=== PATIENT | male | born 1935 | race Caucasian/White ===

== ENCOUNTER 2017-01-26 05:20 | Inpatient (IN) | payer MEDICARE, OTHER ==
[~2017-01-26] VITALS: Ht 175.3 cm; Wt 104.3 kg
--- NOTE | 2017-01-26 06:07 | PHYS DOC ---
Past Medical History Past Medical History: Arthritis, COPD, Hypertension, Other Additional Past Medical Histor: prediabetes Past Surgical History: Cholecystectomy, Tonsillectomy, Other Additional Past Surgical Histo: nose, prostate Alcohol Use: Occasionally Drug Use: None Adult General Chief Complaint Chief Complaint: Neck Pain HPI HPI Patient is a 81 year old male who presents with right sided neck pain & chest pain. Patient reports yesterday afternoon he had right-sided dental pain which has essentially resolved at this time, now experiencing sharp/tight pain radiating from right side of the neck to right chest. Worse with deep breathing but denies shortness of breath. Denies nausea or diaphoresis. Denies fevers or chills, headache, cough, sore throat, vomiting, extremity numbness or weakness. No recent history of trauma. No previous history of similar symptoms. History of diabetes, hypertension, COPD. PCP is . Review of Systems Review of Systems Constitutional: Denies fever or chills Eyes: Denies change in visual acuity HENT: Denies nasal congestion or sore throat . Reports neck pain Respiratory: Denies cough or shortness of breath Cardiovascular: Reports chest pain, denies edema GI: Denies abdominal pain, nausea, vomiting, or diarrhea Musculoskeletal: Denies back pain or joint pain Integument: Denies rash or skin lesions Neurologic: Denies headache, focal weakness or sensory changes Current Medications Current Medications Current Medications Medications (Trade) Dose Ordered Sig/Zara Start Time Stop Time Status Last Admin Dose Admin Aspirin (Layton Aspirin) 325 mg 1X ONCE 01/26/17 06:15 01/26/17 06:16 DC 01/26/17 06:04 325 MG Info (Do NOT chart on this entry -- for MONITORING) 1 each PRN DAILY PRN 01/26/17 06:30 01/28/17 06:29 Iohexol (Omnipaque 300 Mg/ml) 75 ml 1X ONCE 01/26/17 07:00 01/26/17 07:01 DC 01/26/17 06:53 75 ML Iohexol (Omnipaque 350 Mg/ml) 75 ml 1X ONCE 01/26/17 06:30 01/26/17 06:31 DC Allergies Allergies Allergies Coded Allergies Type Severity Reaction Last Updated Verified Penicillins Allergy Intermediate 01/26/17 Yes morphine Allergy Intermediate 01/26/17 Yes Physical Exam Physical Exam Constitutional: Obese, no acute distress, non-toxic appearance. HENT: Normocephalic, atraumatic, bilateral external ears normal, oropharynx moist, nose normal. no tonsillar enlargement or exudate, no dental abscess or infection, no focal dental pain, no trismus. Eyes: PERRLA, EOMI, conjunctiva normal, no discharge. Neck: supple, no stridor. no carotid bruit. no swelling. tenderness to right lateral neck, no masses or lymphadenopathy. Cardiovascular: RRR, no murmurs, no edema. Lungs & Thorax: LCTAB, no wheezing, no respiratory distress. reproducible tenderness with palpation over right anterior chest wall. Abdomen: soft, nontender, nondistended. Skin: Warm, dry, no erythema, no rash. Back: No tenderness. Extremities: No tenderness, no edema. Neurologic: Alert and oriented X 3, CN2-12 grossly intact, symmetric strength/ sensation to UE & LE, no focal deficits noted. Psychologic: Affect normal, judgement normal, mood normal. Current Patient Data Vital Signs Vital Signs Date Time Temp Pulse Resp B/P Pulse Ox O2 Delivery O2 Flow Rate FiO2 01/26/17 07:54 72 26 143/74 94 Room Air 01/26/17 05:27 98.5 98.5 Lab Values Laboratory Tests Test 01/26/17 05:54 White Blood Count 10.1x10^3/uL (4.0-11.0) Red Blood Count 5.14x10^6/uL (4.30-5.70) Hemoglobin 15.5g/dL (13.0-17.5) Hematocrit 46.4% (39.0-53.0) Mean Corpuscular Volume 90fL (79-100) Mean Corpuscular Hemoglobin 30pg (25-35) Mean Corpuscular Hemoglobin Concent 33g/dL (31-37) Red Cell Distribution Width 13.9% (11.5-14.5) Platelet Count 241x10^3/uL (140-400) Neutrophils (%) (Auto) 80% (31-73) H Lymphocytes (%) (Auto) 7% (24-48) L Monocytes (%) (Auto) 11% (0-9) H Eosinophils (%) (Auto) 2% (0-3) Basophils (%) (Auto) 0% (0-3) Neutrophils # (Auto) 8.1x10^3uL (1.8-7.7) H Lymphocytes # (Auto) 0.7x10^3/uL (1.0-4.8) L Monocytes # (Auto) 1.1x10^3/uL (0.0-1.1) Eosinophils # (Auto) 0.2x10^3/uL (0.0-0.7) Basophils # (Auto) 0.0x10^3/uL (0.0-0.2) Prothrombin Time 12.6SEC (11.7-14.0) Prothrombin Time INR 1.0 (0.8-1.1) PTT 30SEC (24-38) Sodium Level 140mmol/L (136-145) Potassium Level 3.6mmol/L (3.5-5.1) Chloride Level 102mmol/L (98-107) Carbon Dioxide Level 28mmol/L (21-32) Anion Gap 10 (6-14) Blood Urea Nitrogen 15mg/dL (8-26) Creatinine 1.0mg/dL (0.7-1.3) Estimated GFR (Cockcroft-Gault) 72.1 BUN/Creatinine Ratio 15 (6-20) Glucose Level 147mg/dL (70-99) H Calcium Level 9.0mg/dL (8.5-10.1) Total Bilirubin 0.7mg/dL (0.2-1.0) Aspartate Amino Transferase (AST) 19U/L (15-37) Alanine Aminotransferase (ALT) 30U/L (16-63) Alkaline Phosphatase 57U/L (46-116) Troponin I Quantitative < 0.017ng/mL (0.000-0.055) PB-Nsv-D-Type Natriuretic Peptide 166pg/mL (0-449) Total Protein 6.9g/dL (6.4-8.2) Albumin 3.6g/dL (3.4-5.0) Albumin/Globulin Ratio 1.1 (1.0-1.7) Laboratory Tests 01/26/17 05:54 Laboratory Tests 01/26/17 05:54 EKG EKG Interpreted by me: Normal sinus rhythm rate 73, no acute ST or T wave changes, Q waves in leads 3 and aVF, normal intervals, no ectopy. [] Radiology/Procedures Radiology/Procedures [facility] [address] [place] [address] IMAGING REPORT Signed PATIENT: FERNANDA CHOI ACCOUNT: [id number] : 1935 LOCATION: ER AGE: 81 SEX: M EXAM STATUS: REG ER ORD. PHYSICIAN: CANDELARIO ACEVEDO MD REASON: CHEST PAIN PROCEDURE: CHEST AP ONLY Portable chest, 01/26/2017: History: Chest pain The heart size is normal. There is calcific plaquing of the aorta. The pulmonary vascularity is normal. There is mild linear atelectasis or scarring in the left base. The lungs are otherwise clear. There is no evidence of pleural fluid. Mild spurring is present in the spine. IMPRESSION: 1. Mild left basilar linear atelectasis or scarring. 2. Aortic atherosclerosis. DICTATED and SIGNED BY: SHIVAM GONZALES MD DATE: 01/26/17707 CC: MARIA E BENITEZ MD; CANDELARIO ACEVEDO MD; BRIAN JOHNSON MD ~ [facility] [address] [place], [place] [id number] IMAGING REPORT Signed PATIENT: FERNANDA CHOI ACCOUNT: [id number] : 1935 LOCATION: ER AGE: 81 SEX: M EXAM STATUS: REG ER ORD. PHYSICIAN: CANDELARIO ACEVEDO MD REASON: right sided neck pain no trauma PROCEDURE: CT ANGIOGRAPHY NECK CTA of the neck with and without contrast, 01/26/2017: History: Right-sided neck and chest pain Multidetector CT imaging was performed prior to and following an IV bolus injection of iodinated contrast material. Multiplanar reconstructions were produced including 3-D volume rendered reconstructions of the major arteries. The limited precontrast scans were obtained for subtraction purposes. There is moderate calcific plaquing of the aortic arch. There is no significant stenosis at the origins of the cervicocephalic arteries from the aortic arch. There is mild calcific plaquing at the carotid bifurcations with no significant associated stenosis. There are additional scattered calcified plaques in the distal internal carotid arteries without evidence of high-grade stenosis. No aneurysm or dissection is evident. Both vertebral arteries in the neck are patent up through the basilar artery level. The origin of the left vertebral artery is partially obscured by artifacts. There is moderate multilevel degenerative change in the cervical spine. There is foraminal narrowing at multiple levels, most severe on the right at C5-6. IMPRESSION: 1. Mild scattered atherosclerotic plaquing without evidence of significant stenosis. 2. No acute abnormality is detected. PQRS Compliance Statement: One or more of the following individualized dose reduction techniques were utilized for this examination: 1. Automated exposure control 2. Adjustment of the mA and/or kV according to patient size 3. Use of iterative reconstruction technique DICTATED and SIGNED BY: SHIVAM GONZALES MD DATE: 01/26/17737 CC: MARIA E BENITEZ MD; CANDELARIO ACEVEDO MD; BRIAN JOHNSON MD ~ [] Course & Med Decision Making Course & Med Decision Making Pertinent Labs and Imaging studies reviewed. (See chart for details) Patient presents with neck pain & chest pain. Gave aspirin & pain medication. Will obtain labs, EKG, CXR, CTA neck. Patient in stable condition at the end of my shift, will transfer care to Dr. Benitez to follow up results & disposition accordingly. Candelario Acevedo MD Addendum by Dr. Maria E Benitez at 0911: I took over care of patient at 0600. On my evaluation, the patient continues to complain of significant pain to the right side of the neck radiating into the chest. I followed up with results of CT angiogram of the neck as ordered by Dr. French which was negative. Etiology of patient's pain is unclear though suspicion for acute coronary syndrome remains at this time. I spoke with patient 's primary physician, , who accepted care of patient in hospital. A consult was placed to Dr. Sawyer of cardiology to follow patient in hospital. [ ] Dragon Disclaimer Dragon Disclaimer This electronic medical record was generated, in whole or in part, using a voice recognition dictation system. Departure Departure Impression: Primary Impression: Chest pain Disposition: ADMITTED INPATIENT Admitting Physician: Brian Johnson Condition: STABLE Referrals: BRIAN JOHNSON MD (PCP) Problem Qualifiers Primary Impression: Chest pain Chest pain type: unspecified Qualified Code: R07.9 - Chest pain, unspecified CANDELARIO ACEVEDO MD Jan 26, 2017 06:07 MARIA E BENITEZ MD Jan 26, 2017 08:07
[2017-01-26 06:08] LABS: BASO % 0 % (0-3); EOS % 2 % (0-3); HEMATOCRIT 46.4 % (39.0-53.0); HEMOGLOBIN 15.5 g/dL (13.0-17.5); LYMPH # 0.7 x10^3/uL (1.0-4.8); LYMPH % 7 % (24-48); MEAN CORPUSCULAR HEMOGLOBIN 30 pg (25-35); MEAN CORPUSCULAR HGB CONC 33 g/dL (31-37); MEAN CORPUSCULAR VOLUME 90 fL (79-100); MONO % 11 % (0-9); NEUT % 80 % (31-73); PLATELET COUNT 241 x10^3/uL (140-400); RED BLOOD COUNT 5.14 x10^6/uL (4.30-5.70); RED CELL DISTRIBUTION WIDTH 13.9 % (11.5-14.5); WHITE BLOOD COUNT 10.1 x10^3/uL (4.0-11.0)
[2017-01-26] MEDS ORDERED: ASPIRIN 325 MG TABLET PO ONE (06:15)
[2017-01-26 06:17] LABS: PROTHROMBIN TIME PATIENT 12.6 SEC (11.7-14.0)
[2017-01-26 06:23] LABS: GFR 72.1; POTASSIUM 3.6 mmol/L (3.5-5.1)
[2017-01-26 06:29] LABS: ALBUMIN 3.6 g/dL (3.4-5.0); ALBUMIN/GLOBULIN RATIO 1.1 (1.0-1.7); TOTAL BILIRUBIN 0.7 mg/dL (0.2-1.0); TOTAL PROTEIN 6.9 g/dL (6.4-8.2)
[2017-01-26] MEDS ORDERED: CONTRAST GIVEN MC PRN (06:30)
[2017-01-26] MEDS ORDERED: IOHEXOL 350 MG/ML 75ML VIAL. IV ONE (06:30)
--- NOTE | 2017-01-26 06:53 | EKG ---
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
[2017-01-26] MEDS ORDERED: IOHEXOL 300 MG/ML 75 ML VIAL IV ONE (07:00)
--- NOTE | 2017-01-26 07:12 | RAD ---
Portable chest, 01/26/2017: History: Chest pain The heart size is normal. There is calcific plaquing of the aorta. The pulmonary vascularity is normal. There is mild linear atelectasis or scarring in the left base. The lungs are otherwise clear. There is no evidence of pleural fluid. Mild spurring is present in the spine. IMPRESSION: 1. Mild left basilar linear atelectasis or scarring. 2. Aortic atherosclerosis.
--- NOTE | 2017-01-26 07:51 | RAD ---
CTA of the neck with and without contrast, 01/26/2017: History: Right-sided neck and chest pain Multidetector CT imaging was performed prior to and following an IV bolus injection of iodinated contrast material. Multiplanar reconstructions were produced including 3-D volume rendered reconstructions of the major arteries. The limited precontrast scans were obtained for subtraction purposes. There is moderate calcific plaquing of the aortic arch. There is no significant stenosis at the origins of the cervicocephalic arteries from the aortic arch. There is mild calcific plaquing at the carotid bifurcations with no significant associated stenosis. There are additional scattered calcified plaques in the distal internal carotid arteries without evidence of high-grade stenosis. No aneurysm or dissection is evident. Both vertebral arteries in the neck are patent up through the basilar artery level. The origin of the left vertebral artery is partially obscured by artifacts. There is moderate multilevel degenerative change in the cervical spine. There is foraminal narrowing at multiple levels, most severe on the right at C5-6. IMPRESSION: 1. Mild scattered atherosclerotic plaquing without evidence of significant stenosis. 2. No acute abnormality is detected. PQRS Compliance Statement: One or more of the following individualized dose reduction techniques were utilized for this examination: 1. Automated exposure control 2. Adjustment of the mA and/or kV according to patient size 3. Use of iterative reconstruction technique
[2017-01-26] MEDS ORDERED: ONDANSETRON PF 4 MG/2 ML VIAL. IV PRN (08:15)
[2017-01-26] MEDS ORDERED: ACETAMINOPHEN 325 MG TABLET. PO PRN (08:15)
[2017-01-26] MEDS: IV NORMAL SALINE 1000ML BAG 1,000 ML IV SCH (08:48)
--- NOTE | 2017-01-26 10:00 | ACF ---
Admission Forms Criteria CHEST PAIN Clinical Indications for Admission to Inpatient Care (Place 'X' for any and all applicable criteria): Admission is indicated for chest pain and ANY ONE of the following(1)(2)(3)(4)(5 ): [ ]I. Angina with acute coronary syndrome (Also use Myocardial Infarction or Angina guideline) [ ]II. Hemodynamic instability [ ]III. Angina needing acute intervention as indicated by ALL of the following( 11)(12): [ ]a) Unstable angina is present as indicated by angina that is ANY ONE of the following: [ ]i) New onset [ ]ii) Nocturnal [ ]iii) Prolonged at rest [ ]iv) Progressive [ ]b) Angina warrants acute intervention as indicated by ANY ONE of the following: [ ]i) Recurrent angina (e.g, not responding as previously to treatment) [ ]ii) Angina at rest or with low-level activities despite initial medical therapy [ ]iii) New or presumably new ST-segment depression on ECG [ ]iv) Signs or symptoms of heart failure (eg, dyspnea, pulmonary edema) [ ]v) New or worsening mitral regurgitation [ ]vi) Hemodynamic instability [ ]vii) Dangerous arrhythmia (eg, sustained ventricular tachycardia) [ ]viii) History of percutaneous coronary intervention within 6 months [ ]ix) History of coronary artery bypass graft surgery [ ]x) CHU risk score of 2 or greater[A] [ ]xi) History of Diabetes(14) [ ]xii) High-risk cardiac ischemia findings on noninvasive testing (e.g, echocardiogram, treadmill testing, nuclear scan) [ ]xiii) Chronic renal insufficiency (ie, estimated GFR less than 60 mL/min/1.732m) [ ]xiv) Left ventricular ejection fraction less than 40% [ ]IV. Evidence of WV (eg, cardiac biomarkers positive, ST-segment elevation on ECG) also use Myocardial Infarction Criteria Form. [ ]V. Pulmonary edema [ ]. Respiratory distress [ ]VII. Chest pain indicative of serious diagnosis other than coronary artery disease (eg, aortic dissection) [ ]VIII. Contraindications and/or Inappropriate clinical situations for Observational Care in patients with Chest Pain, when ANY ONE of the following is required: [ ]a) Patient with risk factor for pulmonary embolism, acute coronary syndrome and myocardial infarction (18) [ ]b) Patient with Pulmonary embolism require an average LOS of 4.3 days, therefore emergency department observation management is inappropriate 18,23 [ ]c) Painful condition/s in the elderly, have the highest rate of recidivism after emergency department observation management (10.8%) 20,21,22 [ ]d) Elevated cardiac biomarker requires intensive and exhaustive care (19) [X]IX. General contraindications and/or Inappropriate clinical situations for Observational Care in patients with Chest Pain, when ANY ONE of the following is required: [X]a) Prediction of prolongation of LOS based on ANY ONE of the following may be considered as a contraindication for observational care 2, 3, 4, 5, 6, 7, 8, 9, 10, 11 [X]i) Age > 65 yrs. [ ]ii) Patient arriving by ambulance [ ]iii) Patient with high acuity [ ]iv) Patient requiring vital sign monitoring [ ]v) Patient on IV medication [ ]b) Systolic blood pressures 180mmHg 3,12 [ ]c) Patient with altered mental status including delirium and other alteration of consciousness, (3) [ ]d) Patient whose discharge disposition will be to a [facility]ci home or rehabilitation home should not be managed in Emergency Department Observation Unit. CMS rule requires 3 days hospital stay before such placement. 3,13 [ ]e) Patient with failure to thrive due to broad array of etiologies 3,16,17 [ ]f) Inability to ambulate 3,14 Extended stay beyond goal length of stay may be needed for (1)(28): [ ]a) Specific condition diagnosed after evaluation (eg, pulmonary embolism, aortic dissection) [ ]b) Unstable angina [ ]c) Continued suspicion of acute coronary syndrome with inability to complete needed cardiac evaluation (eg, patient clinically unable to undergo stress testing) [ ]d) Myocardial infarction (Contents from ANGINA and CHEST PAIN clinical indications for admission to inpatient care have been integrated in this form) The original [facility] content created by [employer] has been revised. The portions of the content which have been revised are identified through the use of italic text or in bold, and [facility] has neither reviewed nor approved the modified material. All other unmodified content is copyright [facility]. Please see references footnoted in the original [facility] edition 2016 Admission Criteria Met?: Yes LETTY MOSES Jan 26, 2017 10:00
[2017-01-26] MEDS: FENTANYL PF 100 MCG/2 ML VIAL. IV PRN ×2 (10:48→16:33)
--- NOTE | 2017-01-26 10:55 | PDOC2 ---
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 Reports that yesterday afternoon he took a viagra and 20 minutes later he started having right jaw pain like a tootache. He does have filling on his right mandibular molar but there was no tenderness around that area with palpation. He also saw his dentist about 2 months ago and told no issues with his teeth. He is an no sexual activity transpired during this event. Reports that his jaw pain continued on and progressed to right neck. Denies any recent injury and there has been no complains of any fever or any ear problems. Since the intensity was increasing and it was not letting up he then proceed to urgent care and was told that this may be vascular related. After that his pain progressed to his chest and it was sharp and pressure. There was no associated nausea, vomiting, palpitations, SOA but he has been more tired lately. He does take ASA intermittently, takes his routine medications with compliance including for HTN, HLP. He has COPD and MELIZA and uses his CPAP regularly. His last cardiac testing was about 5 yrs ago and had LHC and was told slightly weak heart but no blockages. PAST MEDICAL HISTORY Cardiovascular: HTN, Hyperlipidemia Pulmonary: COPD, Other (MELIZA) CENTRAL NERVOUS SYSTEM: Other (No pertinent history) GI: No pertinent hx Heme/Onc: No pertinent hx Hepatobiliary: No pertinent hx Psych: No pertinent hx Musculoskeletal: Osteoarthritis Rheumatologic: No pertinent hx Infectious disease: No pertinent hx ENT: No pertinent hx Renal/: Benign prostatic enlarg. Endocrine: Diabetes (borderline) Dermatology: No pertinent hx PAST SURGICAL HISTORY Past Surgical History: Cholecystectomy, Cataract Removal, Total knee replacement (left), Tonsillectomy, Other (TURP; LHC 5 yrs ago) FAMILY HISTORY Family History: Coronary Artery Disease (mother; father and uncles (in their 40s)) SOCIAL HISTORY Smoke: No (quit in 1979 62 pk yr) ALCOHOL: occassional Drugs: None Lives: with Family CURRENT MEDICATIONS CURRENT MEDICATIONS Current Medications Medications (Trade) Dose Ordered Sig/Zara Route PRN Reason Start Time Stop Time Status Last Admin Dose Admin Aspirin (Layton Aspirin) 325 mg 1X ONCE PO 01/26/17 06:15 01/26/17 06:16 DC 01/26/17 06:04 Iohexol 75 ml 75 ml 1X ONCE IV 01/26/17 07:00 01/26/17 07:01 DC 01/26/17 06:53 Sodium Chloride (Iv Sodium Chloride 0.9% 1000ml Bag) 1,000 ml @ 100 mls/hr Q10H IV 01/26/17 08:10 01/27/17 08:09 01/26/17 08:48 ALLERGIES ALLERGIES: Coded Allergies: Penicillins (Verified Allergy, Intermediate, 01/26/17) morphine (Verified Allergy, Intermediate, 01/26/17) ROS Review of System 14 point ROS evaluated with pertinent positives noted per HPI PHYSICAL EXAM General: Alert, Oriented X3, Cooperative, No acute distress HEENT: Atraumatic, Mucous membr. moist/pink, Other (no cervical lymphadenopathy ; no lesions to right cheek and around right mandibular region) Lungs: Clear to auscultation, Normal air movement Heart: Regular rate (SR with no significant rhythm ectopies), Normal S1, Normal S2, Other (2/6 systolic murmur to LLS border) Abdomen: Soft, No tenderness Extremities: No cyanosis, No edema Skin: No breakdown, No significant lesion Neuro: Normal speech, Sensation intact Psych/Mental Status: Mental status NL, Mood NL MUSCULOSKELETAL: Osteoarthritic changes both hands VITALS VITALS Vital Signs Date Time Temp Pulse Resp B/P Pulse Ox O2 Delivery O2 Flow Rate FiO2 01/26/17 09:24 62 20 123/59 Room Air 01/26/17 08:54 93 01/26/17 05:27 98.5 98.5 LABS Lab: Laboratory Tests Test 01/26/17 05:54 White Blood Count 10.1x10^3/uL (4.0-11.0) Red Blood Count 5.14x10^6/uL (4.30-5.70) Hemoglobin 15.5g/dL (13.0-17.5) Hematocrit 46.4% (39.0-53.0) Mean Corpuscular Volume 90fL (79-100) Mean Corpuscular Hemoglobin 30pg (25-35) Mean Corpuscular Hemoglobin Concent 33g/dL (31-37) Red Cell Distribution Width 13.9% (11.5-14.5) Platelet Count 241x10^3/uL (140-400) Neutrophils (%) (Auto) 80% (31-73) Lymphocytes (%) (Auto) 7% (24-48) Monocytes (%) (Auto) 11% (0-9) Eosinophils (%) (Auto) 2% (0-3) Basophils (%) (Auto) 0% (0-3) Neutrophils # (Auto) 8.1x10^3uL (1.8-7.7) Lymphocytes # (Auto) 0.7x10^3/uL (1.0-4.8) Monocytes # (Auto) 1.1x10^3/uL (0.0-1.1) Eosinophils # (Auto) 0.2x10^3/uL (0.0-0.7) Basophils # (Auto) 0.0x10^3/uL (0.0-0.2) Prothrombin Time 12.6SEC (11.7-14.0) Prothromb Time International Ratio 1.0 (0.8-1.1) Activated Partial Thromboplast Time 30SEC (24-38) Sodium Level 140mmol/L (136-145) Potassium Level 3.6mmol/L (3.5-5.1) Chloride Level 102mmol/L (98-107) Carbon Dioxide Level 28mmol/L (21-32) Anion Gap 10 (6-14) Blood Urea Nitrogen 15mg/dL (8-26) Creatinine 1.0mg/dL (0.7-1.3) Estimated GFR (Cockcroft-Gault) 72.1 BUN/Creatinine Ratio 15 (6-20) Glucose Level 147mg/dL (70-99) Calcium Level 9.0mg/dL (8.5-10.1) Total Bilirubin 0.7mg/dL (0.2-1.0) Aspartate Amino Transf (AST/SGOT) 19U/L (15-37) Alanine Aminotransferase (ALT/SGPT) 30U/L (16-63) Alkaline Phosphatase 57U/L (46-116) Troponin I Quantitative < 0.017ng/mL (0.000-0.055) BK-Rtc-A-Type Natriuretic Peptide 166pg/mL (0-449) Total Protein 6.9g/dL (6.4-8.2) Albumin 3.6g/dL (3.4-5.0) Albumin/Globulin Ratio 1.1 (1.0-1.7) ASSESSMENT/PLAN ASSESSMENT/PLAN 1. Chest/jaw/neck pain: considerable cardiac risk factors 2. 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 HTN: controlled 4. HLP: controlled 5. Metabolic syndrome 6. COPD/MELIZA: stable. Recommendations 1. MPI/TTE today 2. Continue with secondary prevention Problems: MICHELE MURILLO MD 01/26/17 1725: CARDIAC CONSULT ALLERGIES ALLERGIES: Coded Allergies: Penicillins (Verified Allergy, Intermediate, 01/26/17) morphine (Verified Allergy, Intermediate, 01/26/17) ASSESSMENT/PLAN ASSESSMENT/PLAN Patient seen and examined. Agree with above nurse practitioner note. 81-year-old gentleman presenting with noncardiac chest pain. Given his risk factors and some radiation to the jaw it was felt that it would be appropriate to rule out ischemic heart disease. On examination he has normal heart tones. His stress test is unremarkable. His echocardiogram demonstrates normal LV function. He will need routine yearly echocardiogram surveillance to ensure that he does not have any further aortic enlargement. Otherwise, continue supportive care. We'll follow-up on an outpatient basis. Problems: RACHEL GARCIA APRN Jan 26, 2017 10:55 MICHELE MURILLO MD Jan 26, 2017 17:25
[2017-01-26] MEDS ORDERED: FLUT12AE IH (10:59)
[2017-01-26] MEDS ORDERED: PROAIR HFA8.5 GM INH (10:59)
[2017-01-26] MEDS ORDERED: SPIR25TA3 PO (10:59)
[2017-01-26] MEDS ORDERED: HYDR12.58 PO (10:59)
[2017-01-26] MEDS ORDERED: SIMV20TA3 PO (10:59)
[2017-01-26] MEDS ORDERED: AMLO5TAB2 PO (10:59)
[2017-01-26] MEDS ORDERED: LEVO500T8 PO (10:59)
[2017-01-26 11:00] VITALS: BP 113/56
[2017-01-26 11:27] LABS: CHOLESTEROL/HDL RATIO 2.7
[2017-01-26] MEDS ORDERED: REGADENOSON 0.4 MG/5 ML DISP.SYRIN. IV ONE (11:45)
--- NOTE | 2017-01-26 14:30 | CARD ---
APPROVED REPORT EXAM: Two-dimensional and M-mode echocardiogram with Doppler and color Doppler. Other Information Quality : GoodHR: 64bpm Rhythm : NSR INDICATION Chest Pain RISK FACTORS Obesity 2D DIMENSIONS RVDd2.4 (2.9-3.5cm)Left Atrium(2D)3.3 (1.6-4.0cm) IVSd1.0 (0.7-1.1cm)Aortic Root(2D)2.7 (2.0-3.7cm) LVDd4.8 (3.9-5.9cm)LVOT Diameter2.4 (1.8-2.4cm) PWd0.9 (0.7-1.1cm)LVDs3.2 (2.5-4.0cm) FS (%) 33.4 %SV66.3 ml LVEF(%)62.0 (>50%) Aortic Valve AoV Peak Kalen.179.3cm/sAoV VTI34.3cm AO Peak GR.12.9mmHgLVOT Peak Kalen.124.0cm/s AO Mean GR.7mmHgAVA (VMAX)3.03cm2 Mitral Valve MV E Mumzpzdy14.7cm/sMV E Peak Gr.3mmHg MV DECEL [id number] A Xmbxmxmb81.5cm/s MV E Mean Gr.1mmHgE/A Ratio0.9 MV A [id number] Pulmonary Valve PV Peak Tlujlspv911.4cm/s Pulmonary Vein S1 Ntszkqzz47.0cm/sD2 Ostimzch61.6cm/s PVa [id number] LEFT VENTRICLE The left ventricle is normal size. There is normal left ventricular wall thickness. The left ventricu lar systolic function is normal and the ejection fraction is within normal range. The Ejection Fracti on is 60-65%. There is normal LV segmental wall motion. Transmitral Doppler flow pattern is Grade I-a bnormal relaxation pattern. RIGHT VENTRICLE The right ventricle is normal size. There is normal right ventricular wall thickness. The right ventr icular systolic function is normal. ATRIA The left atrium size is normal. The right atrium size is normal. The interatrial septum is intact wit h no evidence for an atrial septal defect or patent foramen ovale as noted on 2-D or Doppler imaging. AORTIC VALVE The aortic valve is mildly sclerotic. Doppler and Color Flow revealed no significant aortic regurgita tion. There is no significant aortic valvular stenosis. MITRAL VALVE The mitral valve leaflets are thickened. There is no evidence of mitral valve prolapse. There is no m itral valve stenosis. Doppler and Color Flow revealed no mitral valve regurgitation noted. TRICUSPID VALVE The tricuspid valve is normal in structure and function. Doppler and Color Flow revealed no tricuspid valve regurgitation noted. There is no pulmonary hypertension. PULMONIC VALVE Doppler and Color Flow revealed no pulmonic valvular regurgitation. There is no pulmonic valvular messi nosis. GREAT VESSELS The aortic root is normal in size. The proximal ascending aorta is mildly dilated at 4.0 cm The pulmo nary artery is normal. The IVC is normal in size and collapses >50% with inspiration. PERICARDIAL EFFUSION There is no evidence of significant pericardial effusion. Critical Notification Critical Value: No <Conclusion> The left ventricular systolic function is normal and the ejection fraction is within normal range. The Ejection Fraction is 60-65%. The proximal ascending aorta is mildly dilated at 4.0 cm
[2017-01-26 14:50] VITALS: BP 144/78
--- NOTE | 2017-01-26 16:23 | RAD ---
APPROVED REPORT Test Type: Pharmacological Stress Nurse/Tech: Manisha Frost R.N. Test Indications: chest pain Cardiac History: copd, high cholesterol, htn Medications: See Electronic Medical Record Medical History: See Electronic Medical Record Resting ECG: SR w/ 1st degree AV block Resting Heart Rate: 73 bpm Resting Blood Pressure: 127/64mmHg Pretest Chest Pain: Typical angina Nurse/Tech Notes S1S2, lungs CTA, pt states that he has some residual achiness scale 1/10 in middle of chest Consent: The procedure was explained to the patient in lay terms. Informed consent was witnessed. Binh eout was entered into [employer]. History and Stress Test performed by RT Meg (Gregory) (N) Pharm. Details Pharmacologic stress testing was performed using 0.4mg per 5ml of regadenoson given intravenously ove r 7-10 seconds. Stress Symptoms slight dyspnea that resolved by end of recovery period POST EXERCISE Reason for Termination: Infusion complete Max HR: 88 bpm Max Blood Pressure: 131/61mmHg Blood Pressure response to exercise: Normal blood pressure response during stress. Heart Rate response to exercise: wnl Chest Pain: Yes. no increase from above stated discomfort Arrhythmia: No. ST Change: No. INTERPRETATION Stress EKG Conclusion: No evidence of stress induced EKG changes. The rest and stress images show normal perfusion, normal contraction and thickening. Other Information Quality:Average Risk Assessment: Low Risk Conclusion 1. No evidence of stress induced EKG changes. 2. Normal myocardial perfusion at stress/rest. 3. Low risk study 4. EF > 60% 5. Subdiaphragmatic attenuation artifact noted.
[2017-01-26 19:00] VITALS: BP 104/44
[2017-01-26] MEDS ORDERED: NON FORMULARY ITEM (Albuterol Sulfate (Proair Hfa Inhaler) 1 PUFF) INH PRN (21:30)
[2017-01-26] MEDS ORDERED: ALBUTEROL SULFATE 2.5 MG/3 ML NEBU. NEB PRN (21:45)
[2017-01-26] MEDS ORDERED: ATORVASTATIN CALCIUM 10 MG TABLET. PO SCH (22:00)
[2017-01-26 23:00] VITALS: BP 107/51
[2017-01-26] MEDS ORDERED: LEVOFLOXACIN 500 MG TABLET PO SCH (23:30)
[2017-01-27] MEDS: IV NORMAL SALINE 1000ML BAG 1,000 ML IV SCH (00:56)
[2017-01-27 03:00] VITALS: BP 130/59
[2017-01-27 06:26] LABS: BASO % 1 % (0-3); EOS % 6 % (0-3); HEMATOCRIT 43.5 % (39.0-53.0); HEMOGLOBIN 14.3 g/dL (13.0-17.5); LYMPH % 18 % (24-48); MEAN CORPUSCULAR HEMOGLOBIN 30 pg (25-35); MEAN CORPUSCULAR HGB CONC 33 g/dL (31-37); MEAN CORPUSCULAR VOLUME 91 fL (79-100); MONO % 10 % (0-9); NEUT % 66 % (31-73); PLATELET COUNT 211 x10^3/uL (140-400); RED BLOOD COUNT 4.77 x10^6/uL (4.30-5.70); RED CELL DISTRIBUTION WIDTH 14.2 % (11.5-14.5); WHITE BLOOD COUNT 5.7 x10^3/uL (4.0-11.0)
[2017-01-27 06:40] LABS: CALCIUM 8.4 mg/dL (8.5-10.1); GFR 72.1; POTASSIUM 3.6 mmol/L (3.5-5.1)
[2017-01-27 07:00] VITALS: BP 135/62
[2017-01-27] MEDS ORDERED: BUDESONIDE 0.5 MG/2 ML NEBU. NEB SCH (08:00)
--- NOTE | 2017-01-27 08:14 | DISCH ---
DISCHARGE INSTRUCTIONS Condition on Discharge Condition on Discharge: Stable Activity After Discharge Activity Instructions for Disc: No restrictions Diet after Discharge Diet after Discharge: Diabetic No Calorie Level Follow-Up Follow up with: as scheduled BRIAN JOHNSON MD Jan 27, 2017 08:14
--- NOTE | 2017-01-27 08:22 | PDOC ---
Provider Note Provider Note [id number] BRIAN JOHNSON MD Jan 27, 2017 08:22
--- NOTE | 2017-01-27 08:53 | SSS ---
ADMIT DATE: 01/26/2017 HOSPITAL SUMMARY: A 81-year-old white male with a history of well-controlled hypertension and prediabetes who took a sublingual Viagra which he has taken before as prescribed by his urologist and then 15 minutes later developed pain in the right lower jaw which radiated down to his lower neck and into his upper chest. This was not associated with intercourse or physical activity and he has taken Viagra this type before without these symptoms. ER evaluation was unremarkable and he was admitted. CPK, troponin, CBC and chemistry profile were within normal limits. Hemoglobin A1c is good at 6.2. EKG showed no acute change. Echocardiogram was all within normal limits and exercise MPI was all within normal limits as well. CT angio of the neck was done and that was normal as well as the chest x-ray. He has had no further chest pain. He with stable vital signs and wishes to be discharged at this time. FINAL DIAGNOSES: 1. Chest pain induced by Viagra. 2. Prediabetes. 3. Hypertension. OPERATIONS, PROCEDURES, COMPLICATIONS AND CONSULTATIONS: None. DISPOSITION: Continue all home meds the same. He is finishing Levaquin for diverticulitis. I will see him in followup as scheduled and if he has further episodes of pain, we will consider CT scan of the chest to look for any evidence of aortic pathology. BRIAN JOHNSON MD DR: DINH/mayco JOB#: [id number] / [id number]
[2017-01-27] MEDS ORDERED: AMLODIPINE BESYLATE 10 MG TABLET. PO SCH (09:00)
[2017-01-27] MEDS ORDERED: SPIRONOLACTONE 25 MG TABLET PO SCH (09:00)
[2017-01-27] MEDS ORDERED: NON FORMULARY ITEM (Fluticasone Propionate (Flovent 110MCG Hfa) 1 PUFF) IH SCH (09:00)
[2017-01-27] MEDS ORDERED: HYDROCHLOROTHIAZIDE 25 MG TABLET PO SCH (09:00)
[2017-01-27 10:36] VITALS: BP 132/60
[2017-01-27 15:03] VITALS: BP 134/63
== END 2017-01-27 17:09 | disposition home or self-care (01) | DRG 313 ==
LOC: ER 05:20 → 5 SOUTH 07:56
PROVIDERS: ADMIT Family Medicine; ATTEND Family Medicine
DX: R07.89 Other chest pain (principal); J98.11 Atelectasis; J44.9 Chronic obstructive pulmonary disease, unspecified; I10 Essential (primary) hypertension; M19.90 Unspecified osteoarthritis, unspecified site; I50.9 Heart failure, unspecified; I11.0 Hypertensive heart disease with heart failure; E11.9 Type 2 diabetes mellitus without complications; E78.5 Hyperlipidemia, unspecified; E88.81 Metabolic syndrome and other insulin resistance; G47.33 Obstructive sleep apnea (adult) (pediatric); I70.0 Atherosclerosis of aorta; Z96.652 Presence of left artificial knee joint; K08.89 Other specified disorders of teeth and supporting structures; M54.2 Cervicalgia; R68.84 Jaw pain; Z79.82 Long term (current) use of aspirin; Z82.49 Family history of ischemic heart disease and other diseases of the circulatory system; Z88.0 Allergy status to penicillin; Z88.5 Allergy status to narcotic agent; Z90.49 Acquired absence of other specified parts of digestive tract; Z98.49 Cataract extraction status, unspecified eye; Z79.899 Other long term (current) drug therapy; T46.7X5A Adverse effect of peripheral vasodilators, initial encounter
CPT/HCPCS: 36415; 70498; 71010; 78452; 80048; 80053; 80061; 83036; 83880; 84443; 84484; 85027; 85610; 85730; 93005; 93017; 93306; 96374; 96375; 96376; A9500; J2785; J3010; J7030; Q9967; 99285-25

== ENCOUNTER 2017-03-17 02:31 | Inpatient (IN) | payer OTHER ==
[~2017-03-17] VITALS: Ht 177.8 cm; Wt 101.7 kg
[~2017-03-17 02:31] MED LIST: AMLO5TAB2 PO; FLUT12AE IH; HYDR12.58 PO; LEVO500T8 PO; PROAIR HFA8.5 GM INH; SIMV20TA3 PO; SPIR25TA3 PO
[2017-03-17 03:24] LABS: BASO % 0 % (0-3); EOS % 2 % (0-3); HEMATOCRIT 43.9 % (39.0-53.0); HEMOGLOBIN 14.7 g/dL (13.0-17.5); LYMPH # 1.5 x10^3/uL (1.0-4.8); LYMPH % 15 % (24-48); MEAN CORPUSCULAR HEMOGLOBIN 30 pg (25-35); MEAN CORPUSCULAR HGB CONC 34 g/dL (31-37); MEAN CORPUSCULAR VOLUME 91 fL (79-100); MONO % 8 % (0-9); NEUT % 75 % (31-73); PLATELET COUNT 241 x10^3/uL (140-400); RED BLOOD COUNT 4.83 x10^6/uL (4.30-5.70); RED CELL DISTRIBUTION WIDTH 14.7 % (11.5-14.5); WHITE BLOOD COUNT 10.1 x10^3/uL (4.0-11.0)
[2017-03-17 03:40] LABS: CREATININE 0.9 mg/dL (0.7-1.3); GFR 81.4; POTASSIUM 4.2 mmol/L (3.5-5.1)
[2017-03-17 03:47] LABS: ALBUMIN 3.4 g/dL (3.4-5.0); TOTAL BILIRUBIN 0.9 mg/dL (0.2-1.0); TOTAL PROTEIN 6.7 g/dL (6.4-8.2)
--- NOTE | 2017-03-17 03:51 | PHYS DOC ---
Past Medical History Past Medical History: Arthritis, COPD, Hypertension, Other Additional Past Medical Histor: prediabetes Past Surgical History: Cholecystectomy, Knee Replacement, Tonsillectomy, Other Additional Past Surgical Histo: nose, prostate, lt knee replacment Alcohol Use: Occasionally Drug Use: None Adult General Chief Complaint Chief Complaint: ABDOMINAL PAIN HPI HPI 81-year-old male who's had a persisting cough for the last several days and had a snicker coughing spell tonight developed significant right upper quadrant pain after a coughing spell. He denies any significant shortness of breath. He localizes all his pain primarily to the right upper quadrant and right lower margin of his cage. Upon my initial assessment, the patient is in no acute distress and saturating 93-94% on room air in no acute respiratory distress. He does state he broke out in a cold sweat after this episode. Review of Systems Review of Systems Constitutional: Denies fever or chills [] Eyes: Denies change in visual acuity, redness, or eye pain [] HENT: Denies nasal congestion or sore throat [] Respiratory: Has cough, has shortness of breath [] Cardiovascular: No additional information not addressed in HPI [] GI: Denies abdominal pain, nausea, vomiting, bloody stools or diarrhea [] : Denies dysuria or hematuria [] Musculoskeletal: Denies back pain or joint pain [] Integument: Denies rash or skin lesions [] Neurologic: Denies headache, focal weakness or sensory changes [] Endocrine: Denies polyuria or polydipsia [] Current Medications Current Medications Allergies Allergies Allergies Coded Allergies Type Severity Reaction Last Updated Verified Penicillins Allergy Intermediate 01/26/17 Yes morphine Allergy Intermediate 01/26/17 Yes Physical Exam Physical Exam Constitutional: Well developed, well nourished, no acute distress, non-toxic appearance. [] HENT: Normocephalic, atraumatic, bilateral external ears normal, oropharynx moist, no oral exudates, nose normal. [] Eyes: PERRLA, EOMI, conjunctiva normal, no discharge. [] Neck: Normal range of motion, no tenderness, supple, no stridor. [] Cardiovascular:Heart rate regular rhythm, no murmur [] Lungs & Thorax: Bilateral breath sounds clear to auscultation, tenderness to right lower rib margin with no palpable crepitus or deformity seen [] Abdomen: Bowel sounds normal, soft, has RUQ tenderness, no masses, no pulsatile masses. [] Skin: Warm, dry, no erythema, no rash. [] Back: No tenderness, no CVA tenderness. [] Extremities: No tenderness, no cyanosis, no clubbing, ROM intact, no edema. [] Neurologic: Alert and oriented X 3, normal motor function, normal sensory function, no focal deficits noted. [] Psychologic: Affect normal, judgement normal, mood normal. [] Current Patient Data Vital Signs Vital Signs Date Time Temp Pulse Resp B/P (MAP) Pulse Ox O2 Delivery O2 Flow Rate FiO2 03/17/17 03:48 69 163/72 (102) 94 Room Air 03/17/17 02:48 97.8 16 97.8 Lab Values Laboratory Tests Test 03/17/17 03:10 White Blood Count 10.1 x10^3/uL (4.0-11.0) Red Blood Count 4.83 x10^6/uL (4.30-5.70) Hemoglobin 14.7 g/dL (13.0-17.5) Hematocrit 43.9 % (39.0-53.0) Mean Corpuscular Volume 91 fL (79-100) Mean Corpuscular Hemoglobin 30 pg (25-35) Mean Corpuscular Hemoglobin Concent 34 g/dL (31-37) Red Cell Distribution Width 14.7 % (11.5-14.5) H Platelet Count 241 x10^3/uL (140-400) Neutrophils (%) (Auto) 75 % (31-73) H Lymphocytes (%) (Auto) 15 % (24-48) L Monocytes (%) (Auto) 8 % (0-9) Eosinophils (%) (Auto) 2 % (0-3) Basophils (%) (Auto) 0 % (0-3) Neutrophils # (Auto) 7.6 x10^3uL (1.8-7.7) Lymphocytes # (Auto) 1.5 x10^3/uL (1.0-4.8) Monocytes # (Auto) 0.8 x10^3/uL (0.0-1.1) Eosinophils # (Auto) 0.2 x10^3/uL (0.0-0.7) Basophils # (Auto) 0.0 x10^3/uL (0.0-0.2) Sodium Level 143 mmol/L (136-145) Potassium Level 4.2 mmol/L (3.5-5.1) Chloride Level 104 mmol/L (98-107) Carbon Dioxide Level 29 mmol/L (21-32) Anion Gap 10 (6-14) Blood Urea Nitrogen 24 mg/dL (8-26) Creatinine 0.9 mg/dL (0.7-1.3) Estimated GFR (Cockcroft-Gault) 81.4 BUN/Creatinine Ratio 27 (6-20) H Glucose Level 157 mg/dL (70-99) H Calcium Level 9.0 mg/dL (8.5-10.1) Total Bilirubin 0.9 mg/dL (0.2-1.0) Aspartate Amino Transferase (AST) 91 U/L (15-37) H Alanine Aminotransferase (ALT) 61 U/L (16-63) Alkaline Phosphatase 54 U/L (46-116) Troponin I Quantitative < 0.017 ng/mL (0.000-0.055) Total Protein 6.7 g/dL (6.4-8.2) Albumin 3.4 g/dL (3.4-5.0) Albumin/Globulin Ratio 1.0 (1.0-1.7) Lipase 332 U/L (73-393) Laboratory Tests 03/17/17 03:10 Laboratory Tests 03/17/17 03:10 EKG EKG EKG as interpreted by ar shows a sinus rhythm with a rate of 60 bpm. [place] interval is slightly prolonged at 240 ms. There is no acute injury pattern. There is no ectopy. Radiology/Procedures Radiology/Procedures Portable one view of the chest as interpreted by ar shows what appears to be a right lower lobe infiltrate Course & Med Decision Making Course & Med Decision Making Pertinent Labs and Imaging studies reviewed. (See chart for details) 89-year-old male who has what appears to be right lower lobe infiltrate with a persisting cough and significant right upper quadrant pain. His laboratory workup was fairly unremarkable. His serum lactate is slightly elevated at 2.4. Blood cultures were obtained prior to antibiotic administration. Patient is saturating in the 90-94% range in no distress. Doses of Rocephin and Zithromax were given for likely community-acquired pneumonia. I discussed the need to admit the patient for his persisting pain. His case was discussed with Dr. Terrence Nelson who agreed to accept for further evaluation and treatment. Dragon Disclaimer Dragon Disclaimer This electronic medical record was generated, in whole or in part, using a voice recognition dictation system. Departure Departure Impression: Primary Impression: Community acquired pneumonia Disposition: ADMITTED INPATIENT Admitting Physician: Terrence Nelson Condition: STABLE Referrals: TERRENCE NELSON MD (PCP) REX SANCHEZ DO March 17, 2017 03:51
[2017-03-17] MEDS ORDERED: AZITHRMYCN 500MG IVPB FOR OMNI 250 ML IV ONE (04:30)
--- NOTE | 2017-03-17 04:52 | ACF ---
Admission Forms Criteria PNEUMONIA, COMMUNITY ACQUIRED Clinical Indications for Admission to Inpatient Care ( Place 'X' for any and all applicable criteria): Admission is indicated for ANY ONE of the following (1)(2)(3): [ ]I. Hypoxemia indicated by ANY ONE of the following: [ ]a) Oxygen saturation less than 90% while breathing room air [ ]b) PO2 less than 60 mm Hg (8.0 kPa) while breathing room air [ ]c) Chronic lung disease with significant deterioration from baseline oxygenation [ ]II. Appropriate diagnostic testing and treatment unavailable in outpatient or recovery facility (eg,testing or infection control measures unavailable(10) [ ]III. Moderate-risk or high-risk category patients (Pneumonia Severity Index (PSI) class IV or V, or CURB-65 score of 3 or greater). [ ]IV. Outpatient treatment failure as indicated by ANY ONE of the following(9) : [ ]a) Failure to respond to antibiotic (eg, resistant organism) [ ]b) Clinically significant adverse effects from medication (eg, vomiting) [ ]c) Complications of pneumonia (eg, empyema, bacteremia) [ ]d) Significant worsening of comorbid cond necessitating inpatient care (eg, chronic heart failure) [X]V. Intermediate-risk category patients (eg, PSI class III or CURB-65 score 2) who do not improve with initial therapy and observation. [ ]. Immunocompromised patients (eg, AIDS, chronic steroid use) at moderate or high risk based on clinical evaluation. [ ]VII. Complicated pleural effusions (eg, exudative, loculated) [ ]VIII.Hemodynamic instability [ ] IX. Altered mental status that is severe or persistent. [ ]X. Dehydration that is severe or persistent. [ ]XI. Bacteremia [ ]XII. Respiratory finding (eg. tachypnea) that do not respond to outpatient or observation care treatment Extended stay beyond goal length of stay may be needed for (20) [ ]a) Unclear diagnosis [ ]b) Pleural disease [ ]c) Severe pneumonia or treatment failure (25 [ ]d) Respiratory failure (anticipate invasive or noninvasive ventilatory support) [ ]e) Abnormal serum electrolytes (serum Na concentration less than 135 mEq/L (mmol/L) (32)(33) [ ]f) Clinically significant comorbid illness (eg, heart failure, atrial fibrillation with rapid heart rate, alcohol withdrawal, renal insufficiency)(34)(35) [ ]g) Comorbid acute exacerbation of COPD(36) [ ]h) Concomitant diagnosis of malignancy that may be associated with malnutrition, immunologic impairment, or bronchial obstruction. [ ]i) Concomitant altered mental status [ ]j) Culture-identified Gram-negative or antibiotic-resistant organism (eg, Pseudomonas, methicillin-resistant Staphylococcus aureus)(30) [ ]k) Healthcare-associated pneumonia The original [employer] content created by [employer] has been revised. The portions of the content which have been revised are identified through the use of italic text or in bold, and [facility] has neither reviewed nor approved the modified material. All other unmodified content is copyright [facility]. Please see references footnoted in the original [facility] edition 2016 Admission Criteria Met?: Yes SUNDAY CHILDERS. March 17, 2017 04:52
[2017-03-17] MEDS ORDERED: ONDANSETRON PF 4 MG/2 ML VIAL. IV PRN (05:15)
[2017-03-17] MEDS ORDERED: IV NORMAL SALINE 1000ML BAG 1,000 ML IV SCH (05:15)
[2017-03-17] MEDS ORDERED: IV NORMAL SALINE 500ML BAG 500 ML IV ONE (05:15)
[2017-03-17] MEDS ORDERED: FLUT9.9S NS (05:32)
[2017-03-17 05:41] VITALS: BP 129/62
[2017-03-17] MEDS: BENZOCAINE/MENTHOL LOZENGE. PO PRN ×2 (05:57→20:28)
--- NOTE | 2017-03-17 06:25 | EKG ---
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
--- NOTE | 2017-03-17 07:15 | RAD ---
Portable chest, 03/17/2017: History: Chest pain The heart size is normal. There is calcific plaquing of the thoracic aorta. The pulmonary vascularity is normal. There is a minimal right basilar opacity compatible with atelectasis/infiltrate. The lungs are otherwise clear. There is no evidence of pleural fluid. IMPRESSION: Minimal right basilar atelectasis/infiltrate.
[2017-03-17 07:22] VITALS: BP 133/59
--- NOTE | 2017-03-17 08:51 | PDOC ---
Provider Note Provider Note [id number] BRIAN JOHNSON MD March 17, 2017 08:51
[2017-03-17] MEDS: SPIRONOLACTONE 25 MG TABLET PO SCH (09:15)
[2017-03-17] MEDS: hydroCHLOROthiazide 25 MG TABLET PO SCH (09:15)
[2017-03-17] MEDS: IPRATRPIUM/ALBUTEROL 0.5/2.5MG 3 ML NEBU. NEB SCH ×3 (10:45→20:37)
--- NOTE | 2017-03-17 11:08 | HP ---
ADMIT DATE: 03/17/2017 CHIEF COMPLAINT: Cough, fever and right upper quadrant pain. HISTORY OF PRESENT ILLNESS: A 81-year-old white male with COPD. He has had cough on and off for the last 6 weeks. He took 5 days of azithromycin about one month ago with some improvement, but then in the last few days, he has had increasing cough and some sputum production. He had some pleuritic right lower chest pain. He came to the ER, found to have a mild right lower lobe infiltrate and admitted with IV Rocephin and Zithromax given in the Emergency Room. PAST MEDICAL HISTORY: ALLERGIES: HE STATES ALLERGY TO PENICILLIN AND MORPHINE. MEDICATIONS: He is on medications for blood pressure and uses inhalers at home. He has had proper vaccination. He has diagnosis of COPD. SOCIAL HISTORY: Quit smoking some years ago, , physically active, retired. FAMILY HISTORY: Unremarkable. REVIEW OF SYSTEMS: Unremarkable. OBJECTIVE: ENT: All within normal limits. NECK: No masses, nodes, bruits or thyroid enlargement. LUNGS: Decreased breath sounds at both bases. No wheezes or tachypnea. CARDIOVASCULAR: Regular rate. No irregular beat or tachycardia. ABDOMEN: Benign, soft, nontender. EXTREMITIES: Good pedal and radial pulses. Good skin turgor. No joint or skin lesions. NEUROLOGIC: Physiologic, nonfocal. No tremors, oriented x 4. ASSESSMENT: Right lower lobe pneumonia, COPD and to azithromycin. PLAN: Continue Rocephin and respiratory treatments for now. BRIAN JOHNSON MD DR: DINH/mayco JOB#: [id number] / [id number]
[2017-03-17 11:17] VITALS: BP 124/58
[2017-03-17 15:25] VITALS: BP 134/65
[2017-03-17 19:59] VITALS: BP 122/53
[2017-03-17 23:37] VITALS: BP 104/48
[2017-03-18 07:00] VITALS: BP 156/76
[2017-03-18] MEDS: IPRATRPIUM/ALBUTEROL 0.5/2.5MG 3 ML NEBU. NEB SCH ×4 (07:22→21:13)
[2017-03-18 08:23] LABS: BASO # 0.1 x10^3/uL (0.0-0.2); BASO % 1 % (0-3); EOS % 3 % (0-3); HEMATOCRIT 43.7 % (39.0-53.0); HEMOGLOBIN 14.3 g/dL (13.0-17.5); LYMPH # 1.4 x10^3/uL (1.0-4.8); LYMPH % 23 % (24-48); MEAN CORPUSCULAR HEMOGLOBIN 30 pg (25-35); MEAN CORPUSCULAR HGB CONC 33 g/dL (31-37); MEAN CORPUSCULAR VOLUME 92 fL (79-100); MONO % 12 % (0-9); NEUT % 62 % (31-73); PLATELET COUNT 231 x10^3/uL (140-400); RED BLOOD COUNT 4.77 x10^6/uL (4.30-5.70); RED CELL DISTRIBUTION WIDTH 14.7 % (11.5-14.5); WHITE BLOOD COUNT 6.4 x10^3/uL (4.0-11.0)
[2017-03-18 08:41] LABS: CALCIUM 8.5 mg/dL (8.5-10.1); GFR 72.1; POTASSIUM 4.1 mmol/L (3.5-5.1)
--- NOTE | 2017-03-18 09:08 | PDOC ---
Provider Note Provider Note feels better, less pain, still prod cough- no temp, lungs sound good- cont raudel bush 03/19 BRIAN JOHNSON MD March 18, 2017 09:08
[2017-03-18] MEDS: hydroCHLOROthiazide 25 MG TABLET PO SCH (09:29)
[2017-03-18] MEDS: SPIRONOLACTONE 25 MG TABLET PO SCH (09:29)
[2017-03-18] MEDS: BENZONATATE 100 MG CAPSULE. PO PRN ×2 (09:30→19:36)
[2017-03-18] MEDS: BENZOCAINE/MENTHOL LOZENGE. PO PRN ×3 (10:55→21:33)
[2017-03-18 11:00] VITALS: BP 131/61
[2017-03-18 15:00] VITALS: BP 134/64
[2017-03-18 19:32] VITALS: BP 140/69
[2017-03-18] MEDS: HYDROcodone/APAP 5/325MG 1 TAB TABLET PO PRN (19:36)
[2017-03-18 22:33] VITALS: BP 137/64
[2017-03-19 03:21] VITALS: BP 124/71
[2017-03-19 07:00] VITALS: BP 141/72
[2017-03-19] MEDS: IPRATRPIUM/ALBUTEROL 0.5/2.5MG 3 ML NEBU. NEB SCH (07:48)
--- NOTE | 2017-03-19 07:49 | DISCH ---
DISCHARGE INSTRUCTIONS Condition on Discharge Condition on Discharge: Stable Activity After Discharge Activity Instructions for Disc: No restrictions Diet after Discharge Diet after Discharge: No Added Salt Follow-Up Follow up with: BRIAN Cleary MD March 19, 2017 07:49
--- NOTE | 2017-03-19 07:52 | PDOC ---
Provider Note Provider Note [id number] BRIAN JOHNSON MD March 19, 2017 07:52
[2017-03-19] MEDS: BENZOCAINE/MENTHOL LOZENGE. PO PRN (08:30)
[2017-03-19] MEDS: BENZONATATE 100 MG CAPSULE. PO PRN (08:30)
[2017-03-19] MEDS: SPIRONOLACTONE 25 MG TABLET PO SCH (08:30)
[2017-03-19] MEDS: hydroCHLOROthiazide 25 MG TABLET PO SCH (08:30)
[2017-03-19] MEDS: HYDROcodone/APAP 5/325MG 1 TAB TABLET PO PRN (08:30)
--- NOTE | 2017-03-19 10:55 | DS ---
DATE OF DISCHARGE: 03/19/2017 HOSPITAL SUMMARY: A 81-year-old white male with known COPD and ongoing cough, with failed outpatient therapy with azithromycin and came in with increasing cough, productive ____ sputum. CBC and chemistry profile were unremarkable. Blood cultures had no growth. Chest x-ray showed small right lower lobe infiltrate present. He was treated with IV Rocephin and respiratory treatments and is afebrile throughout the hospital stay with good oxygen saturation and clinically improved enough to be followed as an outpatient. FINAL DIAGNOSES: 1. Community-acquired pneumonia, right lower lobe. 2. Chronic obstructive pulmonary disease. OPERATIONS, PROCEDURES, COMPLICATIONS, AND CONSULTATIONS: None. DISPOSITION: He will take Vantin 200 mg twice a day for 1 more week, [place] 5/325 t.i.d. p.r.n. for cough and pain. Home meds remain all the same. Office followup 7-10 days for repeat chest x-ray to prove clearance ____ up to date. BRIAN JOHNSON MD DR: DINH/nts JOB#: [id number] / [id number]
== END 2017-03-19 09:15 | disposition home or self-care (01) | DRG 190 ==
LOC: ER 02:31 → 6 SOUTH 03:49
PROVIDERS: ADMIT Family Medicine; ATTEND Family Medicine
DX: J44.0 Chronic obstructive pulmonary disease with (acute) lower respiratory infection (principal); J18.9 Pneumonia, unspecified organism; I10 Essential (primary) hypertension; Z96.659 Presence of unspecified artificial knee joint; M19.90 Unspecified osteoarthritis, unspecified site; Z90.49 Acquired absence of other specified parts of digestive tract; Z88.0 Allergy status to penicillin; Z88.5 Allergy status to narcotic agent; Z87.891 Personal history of nicotine dependence
CPT/HCPCS: 36415; 71010; 80048; 80053; 82962; 83605; 83690; 84484; 85027; 87040; 93005; 94250; 94640; 94760; J0456; J0690; J0696; J7030; J7040; J7620; 99285-25